=== PATIENT | female | born 1955 | race Caucasian/White ===

== ENCOUNTER 2018-02-08 04:19 | Inpatient (IN) | payer SELFPAY ==
[~2018-02-08] VITALS: Ht 172.7 cm; Wt 111.1 kg
[2018-02-08 04:25] VITALS: BP_SYST 158
[2018-02-08] MEDS ORDERED: MORPHINE 2 MG/ML INJ. SYRINGE IVP ONE ×2 (05:00→06:15)
[2018-02-08] MEDS ORDERED: ONDANSETRON HCL 4 MG/2 ML VIAL IVP ONE (05:00)
[2018-02-08] MEDS ORDERED: PANTOPRAZOLE SODIUM 80 MG in NS 100 ML IV ONE (05:00)
[2018-02-08] MEDS ORDERED: PANTOPRAZOLE SODIUM 40 MG/VIAL (PROTONIX) ONE (05:02)
[2018-02-08 05:49] LABS: BASOPHILS # (AUTO) 0.1 K/uL (0.0-0.2); BASOPHILS % (AUTO) 0.3 % (0.0-2.0); EOSINOPHILS # (AUTO) 0.3 K/uL (0.0-0.4); EOSINOPHILS % (AUTO) 1.3 % (0.0-4.0); HEMATOCRIT 31.6 % (36-48); HEMOGLOBIN 9.9 g/dL (12.0-16.0); LYMPHOCYTES # (AUTO) 1.7 K/uL (1.0-5.5); LYMPHOCYTES % (AUTO) 8.1 % (20.5-51.5); MEAN CORPUSCULAR HEMOGLOBIN 24 pg (27-31); MEAN CORPUSCULAR HGB CONC 31 % (32-36); MEAN CORPUSCULAR VOLUME 75 fL (79.0-98.0); MONOCYTES # (AUTO) 1.3 K/uL (0.0-1.0); MONOCYTES % (AUTO) 6.1 % (1.7-9.3); NEUTROPHILS # (AUTO) 17.3 K/uL (1.8-7.7); NEUTROPHILS % (AUTO) 84.2 % (40.0-70.0); PLATELET COUNT (AUTO) 497 K/uL (130-430); RED CELL DISTRIBUTION WIDTH 18.6 % (9.0-15.0); WHITE BLOOD COUNT (AUTO) 20.7 K/uL (4.8-10.8)
[2018-02-08 06:02] LABS: BILIRUBIN,URINE NEGATIVE (NEGATIVE); BLOOD, URINE TRACE (NEGATIVE); CLARITY/URINE CLOUDY (CLEAR); COLOR,URINE YELLOW (YELLOW); GLUCOSE,URINE NEGATIVE (NEGATIVE); KETONES,URINE 2+ (NEGATIVE); LEUKOCYTE ESTERASE ,URINE 1+ (NEGATIVE); NITRITE, URINE POSITIVE (NEGATIVE); PROTEIN URINE 1+ (NEGATIVE); UROBILINOGEN,URINE 0.2 (0.2-1.0)
[2018-02-08 06:05] LABS: CALCIUM 9.6 mg/dL (8.4-11.0); POTASSIUM 4.3 mmol/L (3.5-5.1)
[2018-02-08 06:10] LABS: ALBUMIN 2.9 g/dL (3.4-4.8); TOTAL BILIRUBIN 0.4 mg/dL (0.0-1.0)
[2018-02-08 06:20] LABS: BACTERIA,URINE MANY /HPF (None Seen); MUCUS,URINE None Seen /LPF (None Seen); RBC,URINE 0-3 /HPF (0-3); WBC,URINE 50-80 /HPF (0-3)
[2018-02-08] MEDS ORDERED: cefTRIAXone 1 GM in D5W 50 ML IV ONE (06:30)
[2018-02-08] MEDS ORDERED: NACL 0.9% 1,000 ML IV ONE (06:45)
[2018-02-08] MEDS ORDERED: cefTRIAXone 1 GM VIAL ONE (06:50)
[2018-02-08] MEDS ORDERED: FLUO40CA8 PO (06:59)
[2018-02-08] MEDS ORDERED: BUPR75TA20 PO (06:59)
[2018-02-08] MEDS ORDERED: ATEN-41 PO (06:59)
[2018-02-08] MEDS ORDERED: GABA-529 PO (06:59)
[2018-02-08] MEDS ORDERED: DEXL30CA3 PO (06:59)
[2018-02-08] MEDS ORDERED: INSULIN REGULAR, HUMAN 10 UNITS/0.1 ML INJ IVP ONE (07:00)
[2018-02-08] MEDS ORDERED: MAG HYDROX/AL HYDROX/SIMETH 30 ML, BELLADONNA ALKALOIDS/PHENOBARB 10 ML, LIDOCAINE VISC... PO ONE ×3 (07:00)
[2018-02-08] MEDS ORDERED: ENALAPRILAT DIHYDRATE 1.25 MG/ML VIAL IVP ONE (07:30)
[2018-02-08] MEDS ORDERED: LEVOFLOXACIN 500 MG/D5W 100 ML IV SCH (09:00)
[2018-02-08 10:28] VITALS: BP_SYST 152
[2018-02-08] MEDS ORDERED: PANTOPRAZOLE SODIUM 40 MG TAB PO SCH (11:00)
[2018-02-08] MEDS ORDERED: GABAPENTIN 100 MG CAPSULE PO SCH (11:00)
[2018-02-08] MEDS ORDERED: cloNIDine HCL 0.2 MG TABLET PO PRN (11:30)
[2018-02-08] MEDS ORDERED: ONDANSETRON HCL 4 MG/2 ML VIAL IVP PRN (11:30)
[2018-02-08 12:12] VITALS: BP_SYST 151
[2018-02-08] MEDS: cefTRIAXone 1 GM in D5W 50 ML IV SCH (12:35)
[2018-02-08] MEDS: NACL 0.9% 1,000 ML IV SCH (12:35)
[2018-02-08] MEDS ORDERED: LORazepam 2 MG/ML VIAL IVP ONE (14:00)
[2018-02-08] MEDS ORDERED: PANTOPRAZOLE SODIUM 40 MG TAB PO ONE (14:30)
[2018-02-08] MEDS ORDERED: FLUoxetine HCL 20 MG CAPSULE (PROzac) PO ONE (14:30)
[2018-02-08] MEDS ORDERED: ATENOLOL 25 MG TABLET(TENORMIN) PO ONE (14:30)
[2018-02-08] MEDS: MORPHINE 4 MG/ML INJ. SYRINGE IVP PRN ×2 (14:45→20:14)
[2018-02-08] MEDS: GABAPENTIN 100 MG CAPSULE PO SCH ×2 (14:45→20:15)
[2018-02-08] MEDS: MAG-AL HYDROX/SIMETH 30 ML UDC PO PRN ×2 (14:48→20:12)
[2018-02-08] MEDS: GENTAMICIN SULFATE 160 MG in NS 100 ML IV SCH (15:55)
[2018-02-08 16:35] VITALS: BP_SYST 145
[2018-02-08 20:00] VITALS: BP_SYST 130; BP_SYST 144
[2018-02-08 20:20] VITALS: BP_SYST 144
[2018-02-09] VITALS: BP_SYST 106
[2018-02-09] MEDS: MORPHINE 4 MG/ML INJ. SYRINGE IVP PRN ×5 (00:32→19:49)
[2018-02-09] MEDS ORDERED: LORazepam 2 MG/ML VIAL IVP ONE (07:00)
[2018-02-09 07:02] LABS: ALBUMIN 2.6 g/dL (3.4-4.8); CALCIUM 9.2 mg/dL (8.4-11.0); CREATININE 0.99 mg/dL (0.55-1.30); POTASSIUM 4.3 mmol/L (3.5-5.1); TOTAL BILIRUBIN 0.3 mg/dL (0.0-1.0)
[2018-02-09 07:50] LABS: BASOPHILS # (AUTO) 0.1 K/uL (0.0-0.2); BASOPHILS % (AUTO) 0.4 % (0.0-2.0); EOSINOPHILS # (AUTO) 0.4 K/uL (0.0-0.4); EOSINOPHILS % (AUTO) 1.8 % (0.0-4.0); HEMATOCRIT 29.8 % (36-48); HEMOGLOBIN 9.4 g/dL (12.0-16.0); LYMPHOCYTES # (AUTO) 4.6 K/uL (1.0-5.5); LYMPHOCYTES % (AUTO) 22.4 % (20.5-51.5); MEAN CORPUSCULAR HEMOGLOBIN 24 pg (27-31); MEAN CORPUSCULAR HGB CONC 31 % (32-36); MEAN CORPUSCULAR VOLUME 76 fL (79.0-98.0); MONOCYTES # (AUTO) 1.8 K/uL (0.0-1.0); MONOCYTES % (AUTO) 8.8 % (1.7-9.3); NEUTROPHILS # (AUTO) 13.7 K/uL (1.8-7.7); NEUTROPHILS % (AUTO) 66.6 % (40.0-70.0); RED BLOOD CELL COUNT(AUTO) 3.94 MIL/uL (4.2-6.2); RED CELL DISTRIBUTION WIDTH 19.4 % (9.0-15.0)
[2018-02-09 08:00] VITALS: BP_SYST 124
[2018-02-09] MEDS: ATENOLOL 25 MG TABLET(TENORMIN) PO SCH (09:00)
[2018-02-09 09:04] LABS: WHITE BLOOD COUNT (AUTO) 20.6 K/uL (4.8-10.8)
[2018-02-09 09:09] LABS: PLATELET COUNT (AUTO) 505 K/uL (130-430)
[2018-02-09] MEDS: GABAPENTIN 100 MG CAPSULE PO SCH ×3 (10:12→21:46)
[2018-02-09] MEDS: buPROPion HCL 150 MG XL TAB PO SCH (10:13)
[2018-02-09] MEDS: FLUoxetine HCL 20 MG CAPSULE (PROzac) PO SCH (10:13)
[2018-02-09] MEDS: PANTOPRAZOLE SODIUM 40 MG TAB PO SCH ×2 (10:14→21:46)
[2018-02-09] MEDS: cefTRIAXone 1 GM in D5W 50 ML IV SCH (11:25)
[2018-02-09] MEDS ORDERED: MILK OF MAGNESIA 30 ML UDC PO PRN (11:30)
[2018-02-09 12:00] VITALS: BP_SYST 120
[2018-02-09] MEDS: NACL 0.9% 1,000 ML IV SCH ×2 (12:31→18:26)
[2018-02-09 16:00] VITALS: BP_SYST 128
[2018-02-09] MEDS ORDERED: FLUCONAZOLE 200 mg/ NS 100 ML IV ONE (18:00)
[2018-02-09] MEDS: GENTAMICIN SULFATE 160 MG in NS 100 ML IV SCH (18:26)
[2018-02-10] MEDS: MORPHINE 4 MG/ML INJ. SYRINGE IVP PRN ×5 (00:25→20:01)
[2018-02-10 01:09] VITALS: BP_SYST 142
[2018-02-10 07:35] LABS: CALCIUM 8.8 mg/dL (8.4-11.0); CREATININE 0.97 mg/dL (0.55-1.30); POTASSIUM 4.1 mmol/L (3.5-5.1)
[2018-02-10 07:42] LABS: BASOPHILS # (AUTO) 0.1 K/uL (0.0-0.2); BASOPHILS % (AUTO) 0.4 % (0.0-2.0); EOSINOPHILS # (AUTO) 0.5 K/uL (0.0-0.4); EOSINOPHILS % (AUTO) 2.6 % (0.0-4.0); HEMATOCRIT 27.1 % (36-48); HEMOGLOBIN 8.7 g/dL (12.0-16.0); LYMPHOCYTES # (AUTO) 3.4 K/uL (1.0-5.5); LYMPHOCYTES % (AUTO) 18.9 % (20.5-51.5); MEAN CORPUSCULAR HEMOGLOBIN 24 pg (27-31); MEAN CORPUSCULAR HGB CONC 32 % (32-36); MEAN CORPUSCULAR VOLUME 75 fL (79.0-98.0); MONOCYTES # (AUTO) 1.7 K/uL (0.0-1.0); MONOCYTES % (AUTO) 9.5 % (1.7-9.3); NEUTROPHILS # (AUTO) 12.4 K/uL (1.8-7.7); NEUTROPHILS % (AUTO) 68.6 % (40.0-70.0); PLATELET COUNT (AUTO) 479 K/uL (130-430); RED BLOOD CELL COUNT(AUTO) 3.61 MIL/uL (4.2-6.2); RED CELL DISTRIBUTION WIDTH 19.1 % (9.0-15.0); WHITE BLOOD COUNT (AUTO) 18.1 K/uL (4.8-10.8)
[2018-02-10 08:00] VITALS: BP_SYST 116
[2018-02-10] MEDS: NACL 0.9% 1,000 ML IV SCH (08:31)
[2018-02-10] MEDS: FLUoxetine HCL 20 MG CAPSULE (PROzac) PO SCH (09:06)
[2018-02-10] MEDS: GABAPENTIN 100 MG CAPSULE PO SCH ×3 (09:06→20:12)
[2018-02-10] MEDS: ATENOLOL 25 MG TABLET(TENORMIN) PO SCH (09:06)
[2018-02-10] MEDS: PANTOPRAZOLE SODIUM 40 MG TAB PO SCH ×2 (09:06→20:12)
[2018-02-10] MEDS: buPROPion HCL 150 MG XL TAB PO SCH (09:06)
[2018-02-10] MEDS: cefTRIAXone 1 GM in D5W 50 ML IV SCH (10:10)
[2018-02-10 12:00] VITALS: BP_SYST 118
[2018-02-10] MEDS ORDERED: BISACODYL 5 MG TABLET.DR (DULCOLAX) PO PRN (12:30)
[2018-02-10] MEDS ORDERED: BISACODYL 5 MG TABLET.DR (DULCOLAX) PO ONE (12:30)
[2018-02-10] MEDS ORDERED: DIATR MEGLU/DIATRIZ SOD 30 ML SOLUTION PO ONE (12:33)
[2018-02-10] MEDS ORDERED: IOHEXOL 100 ML IV ONE (13:38)
[2018-02-10] MEDS: GENTAMICIN SULFATE 160 MG in NS 100 ML IV SCH (15:18)
[2018-02-10 16:33] VITALS: BP_SYST 113
[2018-02-10 19:52] VITALS: BP_SYST 119
[2018-02-11 00:57] VITALS: BP_SYST 126
[2018-02-11] MEDS: NACL 0.9% 1,000 ML IV SCH (01:48)
[2018-02-11] MEDS: MORPHINE 4 MG/ML INJ. SYRINGE IVP PRN ×3 (02:00→14:31)
[2018-02-11 08:00] VITALS: BP_SYST 121
[2018-02-11] MEDS: FLUoxetine HCL 20 MG CAPSULE (PROzac) PO SCH (08:10)
[2018-02-11] MEDS: GABAPENTIN 100 MG CAPSULE PO SCH ×2 (08:12→15:01)
[2018-02-11] MEDS: ATENOLOL 25 MG TABLET(TENORMIN) PO SCH (08:12)
[2018-02-11] MEDS: buPROPion HCL 150 MG XL TAB PO SCH (08:12)
[2018-02-11] MEDS: PANTOPRAZOLE SODIUM 40 MG TAB PO SCH (08:12)
[2018-02-11 11:52] LABS: BASOPHILS # (AUTO) 0.1 K/uL (0.0-0.2); BASOPHILS % (AUTO) 0.4 % (0.0-2.0); EOSINOPHILS # (AUTO) 0.3 K/uL (0.0-0.4); EOSINOPHILS % (AUTO) 1.9 % (0.0-4.0); HEMATOCRIT 28.3 % (36-48); HEMOGLOBIN 8.7 g/dL (12.0-16.0); MEAN CORPUSCULAR HEMOGLOBIN 23 pg (27-31); MEAN CORPUSCULAR HGB CONC 31 % (32-36); MEAN CORPUSCULAR VOLUME 75 fL (79.0-98.0); MONOCYTES # (AUTO) 1.4 K/uL (0.0-1.0); MONOCYTES % (AUTO) 9.6 % (1.7-9.3); NEUTROPHILS % (AUTO) 68.1 % (40.0-70.0); PLATELET COUNT (AUTO) 522 K/uL (130-430); RED BLOOD CELL COUNT(AUTO) 3.76 MIL/uL (4.2-6.2); RED CELL DISTRIBUTION WIDTH 19.3 % (9.0-15.0); WHITE BLOOD COUNT (AUTO) 14.8 K/uL (4.8-10.8)
[2018-02-11] MEDS: cefTRIAXone 1 GM in D5W 50 ML IV SCH (12:04)
[2018-02-11 12:15] LABS: CALCIUM 9.1 mg/dL (8.4-11.0); CREATININE 0.93 mg/dL (0.55-1.30); POTASSIUM 3.9 mmol/L (3.5-5.1)
[2018-02-11 12:42] VITALS: BP_SYST 102
[2018-02-11] MEDS: GENTAMICIN SULFATE 160 MG in NS 100 ML IV SCH (15:01)
[2018-02-11 16:00] VITALS: BP_SYST 104
[2018-02-11 18:24] VITALS: BP_SYST 104
== END 2018-02-11 19:19 | disposition home or self-care (01) | DRG 872 ==
LOC: SED 04:19 → SMU 07:06 → STU 07:36 → SMU 13:47
PROVIDERS: ADMIT Internal Medicine; ATTEND Internal Medicine
DX: A41.9 Sepsis, unspecified organism (principal); E66.01 Morbid (severe) obesity due to excess calories; N39.0 Urinary tract infection, site not specified; K21.9 Gastro-esophageal reflux disease without esophagitis; F32.9 Major depressive disorder, single episode, unspecified; I10 Essential (primary) hypertension; K80.20 Calculus of gallbladder without cholecystitis without obstruction; K59.00 Constipation, unspecified; F41.9 Anxiety disorder, unspecified; M19.90 Unspecified osteoarthritis, unspecified site; Z79.899 Other long term (current) drug therapy; Z68.37 Body mass index [BMI] 37.0-37.9, adult; Z90.710 Acquired absence of both cervix and uterus
CPT/HCPCS: 36415; 76700-TC; 78226; 80048; 80053; 81000-TC; 82962; 83605; 83690-TC; 85025; 87040-TC; 87086; 87186-TC; 96365; 96367; 96375; 96376; 99285; A9537; C9113; J0696; J1450; J1580; J1815; J1956; J2001; J2060; J2270; J2405; J7030; J7060; Q9964; Q9967

== ENCOUNTER 2018-02-26 18:14 | Inpatient (IN) | payer SELFPAY ==
[~2018-02-26] VITALS: Ht 172.7 cm; Wt 113.4 kg
[2018-02-26 18:14] VITALS: BP_SYST 172
[~2018-02-26 18:14] MED LIST: ATEN-41 PO; BUPR75TA20 PO; DEXL30CA3 PO; FLUO40CA8 PO; GABA-529 PO
[2018-02-26] MEDS ORDERED: NACL 0.9% 1,000 ML IV ONE (18:45)
[2018-02-26 19:11] LABS: BASOPHILS # (AUTO) 0.1 K/uL (0.0-0.2); BASOPHILS % (AUTO) 0.4 % (0.0-2.0); EOSINOPHILS # (AUTO) 1.1 K/uL (0.0-0.4); EOSINOPHILS % (AUTO) 7.7 % (0.0-4.0); HEMATOCRIT 28.3 % (36-48); HEMOGLOBIN 9.1 g/dL (12.0-16.0); LYMPHOCYTES # (AUTO) 3.2 K/uL (1.0-5.5); LYMPHOCYTES % (AUTO) 21.9 % (20.5-51.5); MEAN CORPUSCULAR HEMOGLOBIN 24 pg (27-31); MEAN CORPUSCULAR HGB CONC 32 % (32-36); MEAN CORPUSCULAR VOLUME 74 fL (79.0-98.0); MONOCYTES # (AUTO) 1.1 K/uL (0.0-1.0); MONOCYTES % (AUTO) 7.5 % (1.7-9.3); PLATELET COUNT (AUTO) 677 K/uL (130-430); RED BLOOD CELL COUNT(AUTO) 3.83 MIL/uL (4.2-6.2); RED CELL DISTRIBUTION WIDTH 18.4 % (9.0-15.0); WHITE BLOOD COUNT (AUTO) 14.5 K/uL (4.8-10.8)
[2018-02-26 19:22] LABS: BILIRUBIN,URINE NEGATIVE (NEGATIVE); BLOOD, URINE NEGATIVE (NEGATIVE); CLARITY/URINE CLEAR (CLEAR); COLOR,URINE YELLOW (YELLOW); GLUCOSE,URINE NEGATIVE (NEGATIVE); KETONES,URINE NEGATIVE (NEGATIVE); LEUKOCYTE ESTERASE ,URINE 1+ (NEGATIVE); NITRITE, URINE NEGATIVE (NEGATIVE); PROTEIN URINE NEGATIVE (NEGATIVE); UROBILINOGEN,URINE 0.2 (0.2-1.0)
[2018-02-26 19:25] LABS: CALCIUM 9.5 mg/dL (8.4-11.0); CREATININE 1.35 mg/dL (0.55-1.30); POTASSIUM 4.6 mmol/L (3.5-5.1)
[2018-02-26 19:30] LABS: TOTAL BILIRUBIN 0.2 mg/dL (0.0-1.0)
[2018-02-26 19:44] LABS: BACTERIA,URINE FEW /HPF (None Seen); RBC,URINE 0-3 /HPF (0-3)
[2018-02-26 19:59] LABS: NEUTROPHILS % (AUTO) 62.5 % (40.0-70.0)
[2018-02-26] MEDS ORDERED: cefTRIAXone 1 GM IVPB PREMIX 50 ML IV ONE (20:00)
[2018-02-26 20:30] VITALS: BP_SYST 159
[2018-02-26 20:35] VITALS: BP_SYST 159
[2018-02-26] MEDS ORDERED: ACETAMINOPHEN 325 MG TABLET PO PRN (20:45)
[2018-02-26] MEDS ORDERED: GABAPENTIN 100 MG CAPSULE PO SCH (21:00)
[2018-02-26] MEDS ORDERED: cefTRIAXone 1 GM in D5W 50 ML IV SCH (21:00)
[2018-02-26] MEDS ORDERED: LEVOFLOXACIN 500 MG/D5W 100 ML IV ONE ×2 (21:00→21:27)
[2018-02-26] MEDS ORDERED: cefTRIAXone 1 GM VIAL ONE (21:28)
[2018-02-26] MEDS: MORPHINE 4 MG/ML INJ. SYRINGE IVP PRN (21:37)
[2018-02-26] MEDS: TEMAZEPAM 15 MG CAPSULE PO PRN (23:49)
[2018-02-26] MEDS: traMADol HCL HCL 50 MG TABLET (ULTRAM) PO PRN (23:51)
[2018-02-26] MEDS: ONDANSETRON HCL 4 MG/2 ML VIAL IVP PRN (23:52)
[2018-02-27] MEDS: NACL 0.9% 1,000 ML IV SCH ×3 (00:02→16:41)
[2018-02-27 00:34] VITALS: BP_SYST 177
[2018-02-27] MEDS: MORPHINE 4 MG/ML INJ. SYRINGE IVP PRN ×5 (01:07→20:25)
[2018-02-27] MEDS ORDERED: cloNIDine HCL 0.1 MG TABLET PO PRN (01:15)
[2018-02-27] MEDS ORDERED: GABAPENTIN 100 MG CAPSULE PO SCH (01:30)
[2018-02-27] MEDS ORDERED: FLU VACC QS 2017-18(36MOS+)/PF 0.5 ML/SYR SYRINGE I.M. PRN (01:30)
[2018-02-27 03:00] VITALS: BP_SYST 140
[2018-02-27] MEDS: ONDANSETRON HCL 4 MG/2 ML VIAL IVP PRN (06:32)
[2018-02-27 06:53] LABS: BASOPHILS % (AUTO) 0.3 % (0.0-2.0); EOSINOPHILS # (AUTO) 0.9 K/uL (0.0-0.4); EOSINOPHILS % (AUTO) 7.4 % (0.0-4.0); HEMATOCRIT 24.4 % (36-48); HEMOGLOBIN 7.6 g/dL (12.0-16.0); LYMPHOCYTES # (AUTO) 2.9 K/uL (1.0-5.5); LYMPHOCYTES % (AUTO) 25.3 % (20.5-51.5); MEAN CORPUSCULAR HEMOGLOBIN 23 pg (27-31); MEAN CORPUSCULAR HGB CONC 31 % (32-36); MEAN CORPUSCULAR VOLUME 74 fL (79.0-98.0); MONOCYTES % (AUTO) 8.4 % (1.7-9.3); NEUTROPHILS # (AUTO) 6.7 K/uL (1.8-7.7); NEUTROPHILS % (AUTO) 58.6 % (40.0-70.0); PLATELET COUNT (AUTO) 538 K/uL (130-430); RED BLOOD CELL COUNT(AUTO) 3.28 MIL/uL (4.2-6.2); RED CELL DISTRIBUTION WIDTH 18.7 % (9.0-15.0); WHITE BLOOD COUNT (AUTO) 11.5 K/uL (4.8-10.8)
[2018-02-27 07:07] LABS: ALBUMIN 2.4 g/dL (3.4-4.8); CALCIUM 9.2 mg/dL (8.4-11.0); CREATININE 1.08 mg/dL (0.55-1.30); POTASSIUM 4.2 mmol/L (3.5-5.1); THYROID STIMULATING HORMONE 8.99 uIu/mL (0.34-4.82); TOTAL BILIRUBIN 0.2 mg/dL (0.0-1.0)
[2018-02-27 07:48] LABS: TOTAL IRON BIND. CAPACITY 338 ug/dL (250-450)
[2018-02-27 08:00] VITALS: BP_SYST 130
[2018-02-27] MEDS ORDERED: NON-FORMULARY MEDICATION (Dexlansoprazole (Dexilant) 30 MG) PO SCH (09:00)
[2018-02-27] MEDS: FLUoxetine HCL 20 MG CAPSULE (PROzac) PO SCH (09:16)
[2018-02-27] MEDS: ATENOLOL 25 MG TABLET(TENORMIN) PO SCH (09:16)
[2018-02-27] MEDS: buPROPion HCL 150 MG XL TAB PO SCH (09:17)
[2018-02-27] MEDS: PANTOPRAZOLE SODIUM 40 MG TAB PO SCH (09:17)
[2018-02-27] MEDS: GABAPENTIN 100 MG CAPSULE PO SCH ×3 (09:17→22:16)
[2018-02-27 11:27] VITALS: BP_SYST 124
[2018-02-27] MEDS ORDERED: DIATR MEGLU/DIATRIZ SOD 30 ML SOLUTION PO ONE (11:50)
[2018-02-27] MEDS ORDERED: IOHEXOL 100 ML IV ONE (14:18)
[2018-02-27 16:00] VITALS: BP_SYST 128
[2018-02-27] MEDS: SOD FERRIC GLUC COMPLEX/SUC 125 MG in NS 100 ML IV SCH (16:26)
[2018-02-27] MEDS: cefTRIAXone 1 GM in D5W 50 ML IV SCH (20:25)
[2018-02-27] MEDS ORDERED: LEVOFLOXACIN 500 MG/D5W 100 ML IV SCH (21:00)
[2018-02-27 23:46] VITALS: BP_SYST 125
[2018-02-28] MEDS: MORPHINE 4 MG/ML INJ. SYRINGE IVP PRN ×6 (00:26→21:58)
[2018-02-28] MEDS: ONDANSETRON HCL 4 MG/2 ML VIAL IVP PRN ×2 (00:34→12:59)
[2018-02-28] MEDS: TEMAZEPAM 15 MG CAPSULE PO PRN ×2 (00:47→20:06)
[2018-02-28 06:33] LABS: BASOPHILS % (AUTO) 0.3 % (0.0-2.0); EOSINOPHILS # (AUTO) 0.5 K/uL (0.0-0.4); EOSINOPHILS % (AUTO) 4.6 % (0.0-4.0); HEMATOCRIT 25.7 % (36-48); HEMOGLOBIN 7.7 g/dL (12.0-16.0); LYMPHOCYTES % (AUTO) 26.2 % (20.5-51.5); MEAN CORPUSCULAR HEMOGLOBIN 22 pg (27-31); MEAN CORPUSCULAR HGB CONC 30 % (32-36); MEAN CORPUSCULAR VOLUME 75 fL (79.0-98.0); MONOCYTES # (AUTO) 1.2 K/uL (0.0-1.0); NEUTROPHILS # (AUTO) 6.8 K/uL (1.8-7.7); NEUTROPHILS % (AUTO) 58.9 % (40.0-70.0); RED BLOOD CELL COUNT(AUTO) 3.44 MIL/uL (4.2-6.2); RED CELL DISTRIBUTION WIDTH 19.3 % (9.0-15.0); WHITE BLOOD COUNT (AUTO) 11.5 K/uL (4.8-10.8)
[2018-02-28 06:41] LABS: CALCIUM 9.3 mg/dL (8.4-11.0); CREATININE 0.94 mg/dL (0.55-1.30); POTASSIUM 4.1 mmol/L (3.5-5.1)
[2018-02-28 08:00] VITALS: BP_SYST 118
[2018-02-28] MEDS: ATENOLOL 25 MG TABLET(TENORMIN) PO SCH (08:29)
[2018-02-28] MEDS: PANTOPRAZOLE SODIUM 40 MG TAB PO SCH (08:29)
[2018-02-28] MEDS: buPROPion HCL 150 MG XL TAB PO SCH (08:29)
[2018-02-28] MEDS: FLUoxetine HCL 20 MG CAPSULE (PROzac) PO SCH (08:30)
[2018-02-28] MEDS: GABAPENTIN 100 MG CAPSULE PO SCH ×3 (08:30→20:05)
[2018-02-28 09:23] LABS: RETICULOCYTE COUNT 2.2 % (0.5-1.5)
[2018-02-28] MEDS ORDERED: LEVOTHYROXINE SODIUM 0.025 MG TABLET PO SCH (12:00)
[2018-02-28 12:07] VITALS: BP_SYST 115
[2018-02-28] MEDS ORDERED: BISACODYL 5 MG TABLET.DR (DULCOLAX) PO ONE (12:30)
[2018-02-28] MEDS: NACL 0.9% 1,000 ML IV SCH ×3 (12:45→22:45)
[2018-02-28] MEDS: SOD FERRIC GLUC COMPLEX/SUC 125 MG in NS 100 ML IV SCH (12:59)
[2018-02-28 14:23] LABS: PLATELET COUNT (AUTO) 571 K/uL (130-430)
[2018-02-28 16:07] VITALS: BP_SYST 108
[2018-02-28] MEDS: traMADol HCL HCL 50 MG TABLET (ULTRAM) PO PRN (16:59)
[2018-02-28 20:00] VITALS: BP_SYST 102
[2018-02-28] MEDS: cefTRIAXone 1 GM in D5W 50 ML IV SCH (20:05)
[2018-02-28 23:53] VITALS: BP_SYST 114
[2018-03-01] MEDS: MORPHINE 4 MG/ML INJ. SYRINGE IVP PRN ×5 (03:10→20:41)
[2018-03-01] MEDS: LEVOTHYROXINE SODIUM 0.05 MG TABLET PO SCH (06:03)
[2018-03-01 06:54] LABS: BASOPHILS % (AUTO) 0.3 % (0.0-2.0); EOSINOPHILS # (AUTO) 0.4 K/uL (0.0-0.4); EOSINOPHILS % (AUTO) 3.1 % (0.0-4.0); HEMATOCRIT 24.9 % (36-48); LYMPHOCYTES # (AUTO) 3.2 K/uL (1.0-5.5); LYMPHOCYTES % (AUTO) 27.8 % (20.5-51.5); MEAN CORPUSCULAR HEMOGLOBIN 23 pg (27-31); MEAN CORPUSCULAR HGB CONC 32 % (32-36); MEAN CORPUSCULAR VOLUME 74 fL (79.0-98.0); MONOCYTES % (AUTO) 8.8 % (1.7-9.3); PLATELET COUNT (AUTO) 515 K/uL (130-430); RED BLOOD CELL COUNT(AUTO) 3.35 MIL/uL (4.2-6.2); RED CELL DISTRIBUTION WIDTH 18.6 % (9.0-15.0); WHITE BLOOD COUNT (AUTO) 11.6 K/uL (4.8-10.8)
[2018-03-01 07:02] LABS: CALCIUM 9.2 mg/dL (8.4-11.0); CREATININE 0.94 mg/dL (0.55-1.30); POTASSIUM 3.8 mmol/L (3.5-5.1)
[2018-03-01 07:31] LABS: HEMOGLOBIN 7.8 g/dL (12.0-16.0)
[2018-03-01 08:17] VITALS: BP_SYST 104
[2018-03-01] MEDS: PANTOPRAZOLE SODIUM 40 MG TAB PO SCH (09:06)
[2018-03-01] MEDS: GABAPENTIN 100 MG CAPSULE PO SCH ×3 (09:06→20:41)
[2018-03-01] MEDS: NACL 0.9% 1,000 ML IV SCH ×2 (09:06→22:47)
[2018-03-01] MEDS: buPROPion HCL 150 MG XL TAB PO SCH (09:07)
[2018-03-01] MEDS: ATENOLOL 25 MG TABLET(TENORMIN) PO SCH (09:07)
[2018-03-01] MEDS: FLUoxetine HCL 20 MG CAPSULE (PROzac) PO SCH (09:07)
[2018-03-01 11:38] LABS: RETICULOCYTE COUNT 3.7 % (0.5-1.5)
[2018-03-01 12:00] VITALS: BP_SYST 107
[2018-03-01] MEDS: SOD FERRIC GLUC COMPLEX/SUC 125 MG in NS 100 ML IV SCH (13:37)
[2018-03-01 16:09] VITALS: BP_SYST 120
[2018-03-01] MEDS: cefTRIAXone 1 GM in D5W 50 ML IV SCH (20:46)
[2018-03-01] MEDS: TEMAZEPAM 15 MG CAPSULE PO PRN (22:47)
[2018-03-02 01:21] VITALS: BP_SYST 93
[2018-03-02] MEDS: MORPHINE 4 MG/ML INJ. SYRINGE IVP PRN ×3 (01:39→12:43)
[2018-03-02] MEDS: LEVOTHYROXINE SODIUM 0.05 MG TABLET PO SCH (06:25)
[2018-03-02 08:14] VITALS: BP_SYST 108
[2018-03-02 11:19] VITALS: BP_SYST 120
[2018-03-02] MEDS: PANTOPRAZOLE SODIUM 40 MG TAB PO SCH (11:31)
[2018-03-02] MEDS: FLUoxetine HCL 20 MG CAPSULE (PROzac) PO SCH (11:31)
[2018-03-02] MEDS: buPROPion HCL 150 MG XL TAB PO SCH (11:32)
[2018-03-02] MEDS: GABAPENTIN 100 MG CAPSULE PO SCH ×2 (11:32→15:58)
[2018-03-02] MEDS: ATENOLOL 25 MG TABLET(TENORMIN) PO SCH (11:33)
[2018-03-02] MEDS: SOD FERRIC GLUC COMPLEX/SUC 125 MG in NS 100 ML IV SCH (12:44)
[2018-03-02 12:53] LABS: BASOPHILS # (AUTO) 0.1 K/uL (0.0-0.2); BASOPHILS % (AUTO) 0.7 % (0.0-2.0); EOSINOPHILS # (AUTO) 0.5 K/uL (0.0-0.4); EOSINOPHILS % (AUTO) 3.3 % (0.0-4.0); HEMOGLOBIN 8.4 g/dL (12.0-16.0); LYMPHOCYTES # (AUTO) 2.7 K/uL (1.0-5.5); LYMPHOCYTES % (AUTO) 18.2 % (20.5-51.5); MEAN CORPUSCULAR HEMOGLOBIN 23 pg (27-31); MEAN CORPUSCULAR HGB CONC 31 % (32-36); MEAN CORPUSCULAR VOLUME 75 fL (79.0-98.0); MONOCYTES % (AUTO) 6.9 % (1.7-9.3); NEUTROPHILS # (AUTO) 10.5 K/uL (1.8-7.7); NEUTROPHILS % (AUTO) 70.9 % (40.0-70.0); PLATELET COUNT (AUTO) 483 K/uL (130-430); RED BLOOD CELL COUNT(AUTO) 3.62 MIL/uL (4.2-6.2); WHITE BLOOD COUNT (AUTO) 14.8 K/uL (4.8-10.8)
[2018-03-02 15:27] VITALS: BP_SYST 134
[2018-03-02] MEDS ORDERED: PRO40 PO (15:30)
[2018-03-02] MEDS ORDERED: NITR-85 PO (15:30)
[2018-03-02 15:32] VITALS: BP_SYST 134
[2018-03-02 15:41] VITALS: BP_SYST 111
[2018-03-02] MEDS: traMADol HCL HCL 50 MG TABLET (ULTRAM) PO PRN (16:01)
== END 2018-03-02 16:47 | disposition home or self-care (01) | DRG 378 ==
LOC: SED 18:14 → SMU 19:57
PROVIDERS: ADMIT Internal Medicine; ATTEND Internal Medicine
DX: K92.2 Gastrointestinal hemorrhage, unspecified (principal); N12 Tubulo-interstitial nephritis, not specified as acute or chronic; E44.1 Mild protein-calorie malnutrition; D50.9 Iron deficiency anemia, unspecified; F19.10 Other psychoactive substance abuse, uncomplicated; E03.9 Hypothyroidism, unspecified; E66.9 Obesity, unspecified; F32.9 Major depressive disorder, single episode, unspecified; K29.70 Gastritis, unspecified, without bleeding; I10 Essential (primary) hypertension; K59.03 Drug induced constipation; M19.90 Unspecified osteoarthritis, unspecified site; K80.20 Calculus of gallbladder without cholecystitis without obstruction; K57.90 Diverticulosis of intestine, part unspecified, without perforation or abscess without bleeding; T39.395A Adverse effect of other nonsteroidal anti-inflammatory drugs [NSAID], initial encounter; K64.9 Unspecified hemorrhoids; Z80.7 Family history of other malignant neoplasms of lymphoid, hematopoietic and related tissues; Z80.8 Family history of malignant neoplasm of other organs or systems; Y92.89 Other specified places as the place of occurrence of the external cause; Z90.710 Acquired absence of both cervix and uterus
CPT/HCPCS: 36415; 74250-TC; 80048; 80053; 80061; 81000-TC; 82272; 82728; 83010; 83540-TC; 83550-TC; 83690-TC; 84443-TC; 85025; 85044-TC; 87081; 87086; 96360; 99285; J0696; J1956; J2270; J2405; J2916; J7030; J7060; Q2037; Q9964; Q9967

== ENCOUNTER 2018-05-18 00:27 | Emergency (ER) | payer SELFPAY ==
[~2018-05-18] VITALS: Ht 172.7 cm; Wt 108.9 kg
[~2018-05-18 00:27] MED LIST changes: -DEXL30CA3 PO; +NITR-85 PO; +PRO40 PO
[2018-05-18 00:40] VITALS: BP_SYST 152
[2018-05-18] MEDS ORDERED: ONDANSETRON 4 MG ODT TAB PO ONE (01:15)
[2018-05-18 01:41] LABS: BILIRUBIN,URINE NEGATIVE (NEGATIVE); BLOOD, URINE NEGATIVE (NEGATIVE); CLARITY/URINE SL HAZY (CLEAR); COLOR,URINE YELLOW (YELLOW); GLUCOSE,URINE NEGATIVE (NEGATIVE); KETONES,URINE NEGATIVE (NEGATIVE); LEUKOCYTE ESTERASE ,URINE TRACE (NEGATIVE); NITRITE, URINE NEGATIVE (NEGATIVE); PROTEIN URINE TRACE (NEGATIVE); UROBILINOGEN,URINE 0.2 (0.2-1.0)
[2018-05-18] MEDS ORDERED: NACL 0.9% 1,000 ML IV ONE (02:00)
[2018-05-18] MEDS ORDERED: SIMETHICONE 80 MG TAB.CHEW PO ONE (02:00)
[2018-05-18 02:03] LABS: BACTERIA,URINE MODERATE /HPF (None Seen); MUCUS,URINE 1+ /LPF (None Seen); RBC,URINE 0-3 /HPF (0-3)
[2018-05-18] MEDS ORDERED: KETOROLAC TROMETHAMINE 30 MG VIAL IM ONE (02:15)
[2018-05-18] MEDS ORDERED: SIMETHICONE 80 MG TAB.CHEW ONE (02:19)
[2018-05-18 02:42] VITALS: BP_SYST 147
== END 2018-05-18 02:42 | disposition home or self-care (01) ==
LOC: SED 00:27
DX: R11.2 Nausea with vomiting, unspecified (principal); R19.7 Diarrhea, unspecified; K21.9 Gastro-esophageal reflux disease without esophagitis; Z90.710 Acquired absence of both cervix and uterus; Z79.899 Other long term (current) drug therapy
CPT/HCPCS: 74018; 81000; 87086; 96372; 99285; J1885; J7030; Q0162

== ENCOUNTER 2018-08-11 11:09 | Emergency (ER) | payer MEDICAID ==
[~2018-08-11] VITALS: Ht 172.7 cm; Wt 108.4 kg
[2018-08-11 11:10] VITALS: BP_SYST 147
[2018-08-11] MEDS ORDERED: LACTULOSE 20 GM/30 ML UDC PO ONE (12:15)
[2018-08-11 12:20] VITALS: BP_SYST 136
== END 2018-08-11 12:20 | disposition home or self-care (01) ==
LOC: SED 11:09
DX: K59.00 Constipation, unspecified (principal); K21.9 Gastro-esophageal reflux disease without esophagitis; I10 Essential (primary) hypertension; Z79.899 Other long term (current) drug therapy
CPT/HCPCS: 99283

== ENCOUNTER 2018-08-14 11:34 | Emergency (ER) | payer MEDICAID ==
[~2018-08-14] VITALS: Ht 172.7 cm; Wt 108.4 kg
[2018-08-14 11:34] VITALS: BP_SYST 133
--- NOTE | 2018-08-14 11:40 | NUR ---
Pt placed in bed 5
--- NOTE | 2018-08-14 12:20 | NUR ---
Pt ambulated to ED with C/O of constipation x1week. Pt states abd pain 05/25. Pt is in room and awaiting MD.
--- NOTE | 2018-08-14 12:25 | NUR ---
XR at bedside with pt
--- NOTE | 2018-08-14 12:35 | NUR ---
ER at bedside examining patient.
[2018-08-14] MEDS ORDERED: MAGNESIUM CITRATE 300 ML ORAL SOLUTION PO ONE (13:30)
[2018-08-14 13:38] VITALS: BP_SYST 139
--- NOTE | 2018-08-14 13:38 | NUR ---
Patient given written and verbal discharge instructions and verbalizes understanding. ER MD discussed with patient the results and treatment provided. Patient in stable condition. ID arm band removed. Patient educated on pain management and to follow up with PMD. Pain Scale 0/10. Opportunity for questions provided and answered. Medication side effect fact sheet provided.
== END 2018-08-14 13:38 | disposition home or self-care (01) ==
LOC: SED 11:34
DX: K59.00 Constipation, unspecified (principal); K21.9 Gastro-esophageal reflux disease without esophagitis; I10 Essential (primary) hypertension; Z79.899 Other long term (current) drug therapy
CPT/HCPCS: 74018; 99283

== ENCOUNTER 2018-09-18 00:47 | Emergency (ER) | payer SELFPAY ==
[~2018-09-18] VITALS: Ht 172.7 cm; Wt 106.6 kg
[2018-09-18 01:09] VITALS: BP_SYST 164
[2018-09-18] MEDS ORDERED: NACL 0.9% 1,000 ML IV ONE (01:14)
[2018-09-18] MEDS ORDERED: MORPHINE 2 MG/ML INJ. SYRINGE IVP ONE ×2 (01:15→02:45)
[2018-09-18] MEDS ORDERED: ONDANSETRON HCL 4 MG/2 ML VIAL IVP ONE (01:15)
[2018-09-18 01:35] LABS: BASOPHILS # (AUTO) 0.1 K/uL (0.0-0.2); BASOPHILS % (AUTO) 0.5 % (0.0-2.0); EOSINOPHILS # (AUTO) 0.3 K/uL (0.0-0.4); EOSINOPHILS % (AUTO) 1.9 % (0.0-4.0); HEMATOCRIT 29.7 % (36-48); HEMOGLOBIN 9.1 g/dL (12.0-16.0); LYMPHOCYTES # (AUTO) 3.8 K/uL (1.0-5.5); LYMPHOCYTES % (AUTO) 25.7 % (20.5-51.5); MEAN CORPUSCULAR HEMOGLOBIN 24 pg (27-31); MEAN CORPUSCULAR HGB CONC 31 % (32-36); MEAN CORPUSCULAR VOLUME 77 fL (79.0-98.0); MONOCYTES # (AUTO) 1.2 K/uL (0.0-1.0); MONOCYTES % (AUTO) 7.8 % (1.7-9.3); NEUTROPHILS # (AUTO) 9.4 K/uL (1.8-7.7); PLATELET COUNT (AUTO) 597 K/uL (130-430); RED BLOOD CELL COUNT(AUTO) 3.85 MIL/uL (4.2-6.2); WHITE BLOOD COUNT (AUTO) 14.8 K/uL (4.8-10.8)
[2018-09-18 01:38] LABS: CALCIUM 9.7 mg/dL (8.4-11.0); CREATININE 0.95 mg/dL (0.55-1.30); POTASSIUM 3.6 mmol/L (3.5-5.1)
[2018-09-18 01:43] LABS: ALBUMIN 2.9 g/dL (3.4-4.8); TOTAL BILIRUBIN 0.1 mg/dL (0.0-1.0)
[2018-09-18 01:46] LABS: NEUTROPHILS % (AUTO) 64.1 % (40.0-70.0)
[2018-09-18 03:30] VITALS: BP_SYST 149
[2018-09-18 04:25] LABS: BILIRUBIN,URINE NEGATIVE (NEGATIVE); BLOOD, URINE NEGATIVE (NEGATIVE); CLARITY/URINE SL HAZY (CLEAR); COLOR,URINE YELLOW (YELLOW); GLUCOSE,URINE NEGATIVE (NEGATIVE); KETONES,URINE NEGATIVE (NEGATIVE); LEUKOCYTE ESTERASE ,URINE 1+ (NEGATIVE); NITRITE, URINE NEGATIVE (NEGATIVE); PROTEIN URINE NEGATIVE (NEGATIVE); UROBILINOGEN,URINE 0.2 (0.2-1.0)
[2018-09-18 04:59] LABS: BACTERIA,URINE FEW /HPF (None Seen); MUCUS,URINE 1+ /LPF (None Seen); RBC,URINE 0-3 /HPF (0-3)
[2018-09-18 05:00] LABS: URINE AMORPHOUS URATE 1+ /HPF (None Seen)
== END 2018-09-18 04:00 | disposition home or self-care (01) ==
LOC: SED 00:47
DX: R10.84 Generalized abdominal pain (principal); R11.10 Vomiting, unspecified; K21.9 Gastro-esophageal reflux disease without esophagitis; I10 Essential (primary) hypertension; Z79.899 Other long term (current) drug therapy
CPT/HCPCS: 36415; 74176; 80053; 81000; 83690; 85025; 87086; 96361; 96374; 96375; 96376; 99285; J2270; J2405

== ENCOUNTER → 2018-12-02 | Outpatient (CLI) | payer SELFPAY ==
[~2018-12-02] MED LIST changes: -NITR-85 PO
== END | disposition home or self-care (01) ==
LOC: SNM 10:37
PROVIDERS: ATTEND Internal Medicine Gastroenterology
DX: K31.84 Gastroparesis (principal); R11.2 Nausea with vomiting, unspecified
CPT/HCPCS: 78264; A9541